=== PATIENT | female | born 1990 | race Hispanic/Latino ===

== ENCOUNTER → 2019-05-29 | Outpatient (CLI) | payer BC, MEDICAID | END | disposition home or self-care (01) | LOC: RAH 13:11 | PROVIDERS: ATTEND Obstetrics & Gynecology | DX: Z34.81 Encounter for supervision of other normal pregnancy, first trimester (principal); Z3A.00 Weeks of gestation of pregnancy not specified | CPT/HCPCS: 76801 ==